=== PATIENT | female | born 1995 | race Caucasian/White ===

== ENCOUNTER → 2024-04-16 | Outpatient (CLI) | payer BC, SELFPAY ==
[2024-04-16 15:57] LABS: Erythrocyte Sedimentation Rate 3 mm/hr (0-30)
[2024-04-16 16:20] LABS: CPK Total, Creatine Kinase 92 U/L (26-192); Magnesium 2.3 mg/dL (1.6-2.6)
[2024-04-16 16:22] LABS: Rheumatoid Factor < 10.0 IU/mL (<15)
[2024-04-22 15:08] LABS: ACHR Recep AB, Blocking 18 % (0-25); Acetylcholine Receptor Binding < 0.03 nmol/L (0.00-0.24)
[2024-04-23 06:07] LABS: Aldolase 6.7 U/L (3.3-10.3); EBV Acute VCA IgM < 36.0 U/mL (0.0-35.9); Free Kappa Light Chains 7.3 mg/L (3.3-19.4); Free Lambda Light Chains 4.8 mg/L (5.7-26.3); Myoglobin, Serum 21 ng/mL (25-58); Vitamin B1, Thiamine 198.6 nmol/L (66.5-200.0)
== END | disposition home or self-care (01) ==
PROVIDERS: Referring Provider Psychiatry & Neurology Neurology; Visit Provider Psychiatry & Neurology Neurology
DX: M79.10 Myalgia, unspecified site (principal)
CPT/HCPCS: 36415; 82085; 82175; 82550; 82746; 83519; 83655; 83735; 83825; 83874; 83883; 84238; 84425; 85652; 86431; 86664; 86665